=== PATIENT | male | born 1980 | race African-American/Black ===

== ENCOUNTER 2019-11-11 12:33 | Emergency (ER) | payer OTHER ==
[2019-11-11] MEDS ORDERED: Ondansetron PF 4 MG/2 ML Vial ONE (14:08)
[2019-11-11 14:36] LABS: #Basophils 0.1 thou/uL (0.0-0.2); #Lymphocytes 1.6 thou/uL (1.20-3.40); #Monocytes 0.8 thou/uL (0.11-0.59); #Neutrophils 3.7 thou/uL (1.40-6.50); %Basophils 1.1 % (0.0-1.0); %Eosinophils 0.5 % (0.0-10.0); %Lymphocytes 25.6 % (21.0-51.0); %Monocytes 12.2 % (0.0-10.0); %Neutrophils 60.6 % (42.0-75.0); Hemoglobin 17.6 g/dL (14.0-18.0); Mean Corpuscular HGB CONC 33.1 g/dL (32.0-36.0); Mean Corpuscular Hemoglobin 31.7 pg (27.0-31.0); Mean Corpuscular Volume 95.7 fL (78.0-98.0); Mean Platelet Volume 8.2 fL (7.4-10.4); Platelet Count 336 thou/uL (130-400); RBC Distribution Width 12.9 % (11.5-14.5); Red Blood Cell (RBC) Count 5.56 mill/uL (4.70-6.10); White Blood Cell (WBC) Count 6.1 thou/uL (4.8-10.8)
[2019-11-11 15:03] LABS: ALT (SGPT) 20 U/L (8-55); AST (SGOT) 20 U/L (5-34); Albumin 4.9 g/dL (3.5-5.0); Alkaline Phosphatase 137 U/L (40-110); Anion Gap 15 mmol/L (10-20); BUN (Urea Nitrogen) 17 mg/dL (8.9-20.6); Bilirubin, Total 2.4 mg/dL (0.2-1.2); Calc. Creatinine Clearance 0 mL/min (70-130); Calcium 10.3 mg/dL (7.8-10.44); Carbon Dioxide 30 mmol/L (22-29); Chloride 99 mmol/L (98-107); Estimated GFR-MDRD 72; Globulin 3.5 g/dL (2.4-3.5); Glucose 86 mg/dL (70-105); Lipase 12 U/L (8-78); Protein, Total 8.4 g/dL (6.0-8.3); Sodium 139 mmol/L (136-145)
[2019-11-11] MEDS ORDERED: Acetaminophen 500 MG TAB ONE (15:46)
--- NOTE | 2019-11-11 16:19 | ULT ---
RIGHT UPPER QUADRANT ULTRASOUND: 11/11/19 HISTORY: Right upper quadrant pain, nausea, vomiting. FINDINGS: The liver demonstrates homogeneous echotexture without focal mass and intrahepatic ductal dilatation. No shadowing gallstones, gallbladder wall thickening or pericholecystic fluid is seen. There is a tiny amount of sludge in the gallbladder seen on the decubitus view. Common duct measures 4 mm in renny meter. The pancreas is not well visualized due to overlying bowel gas. The right kidney is normal. N o free fluid is seen. IMPRESSION: Tiny amount of gallbladder sludge. No evidence of cholelithiasis. POS: [facility]
[2019-11-11 16:30] LABS: Bacteria/HPF None Seen HPF (None Seen); Bilirubin Negative (Negative); Blood, Urine Negative (Negative); Clarity Clear (Clear); Glucose, Urine (Dipstick) Normal (Negative); Leukocyte Negative Leu/uL (Negative); Mucous/LPF 2+ LPF (<2+); Nitrite Negative (Negative); Protein, Urine (Dipstick) 30 mg/dL (Neg-Trace); RBC/HPF None Seen HPF (0-3); Squamous Epithelial 0-3 HPF (0-3); Urobilinogen 12 mg/dL (Less than 2)
== END 2019-11-11 17:26 | disposition home or self-care (01) ==
LOC: ERS 12:33
DX: R11.2 Nausea with vomiting, unspecified (principal); R10.9 Unspecified abdominal pain; R10.817 Generalized abdominal tenderness
CPT/HCPCS: 76705; 80053; 81003; 81015; 83690; 85025; 96361; 96374; J2405